=== PATIENT | male | born 1980 ===

== ENCOUNTER 2024-12-07 06:24 | Day surgery (SDC) | payer BC, SELFPAY | END 2024-12-07 13:28 | disposition home or self-care (01) | LOC: GI 06:24 | PROVIDERS: ATTENDING PHYSICIAN Internal Medicine Gastroenterology | DX: Z12.11 Encounter for screening for malignant neoplasm of colon (principal); K63.3 Ulcer of intestine; K64.8 Other hemorrhoids; D12.2 Benign neoplasm of ascending colon | CPT/HCPCS: 45380; 88305 ==

== ENCOUNTER 2025-02-14 06:23 | Day surgery (SDC) | payer BC, SELFPAY ==
[2025-02-14 11:37] VITALS: BMI 19.8
[2025-02-14 11:38] VITALS: BMI 19.8
[2025-02-14 11:39] VITALS: BP 107/72
[2025-02-14] MEDS: TYLENOL 1000 MG PO (11:54)
[2025-02-14] MEDS: NORMOSOL-R/PLASMALYTE-A 1000 IV (11:55)
[2025-02-14 14:22] VITALS: BP 107/72; BP 94/55
[2025-02-14 14:30] VITALS: BP 100/56
[2025-02-14 14:45] VITALS: BP 100/61
[2025-02-14 15:00] VITALS: BP 104/63
[2025-02-14 15:15] VITALS: BP 105/71
== END 2025-02-14 16:01 | disposition home or self-care (01) ==
LOC: SDS 06:23
PROVIDERS: ATTENDING PHYSICIAN Surgery
DX: K60.50 Anorectal fistula, unspecified (principal)
CPT/HCPCS: 46270